=== PATIENT | female | born 1995 | race Caucasian/White ===

== ENCOUNTER 2017-05-07 03:38 | Emergency (ER) | payer MEDICAID ==
[2017-05-07 03:53] VITALS: RESP 20
[2017-05-07] MEDS ORDERED: Albuterol-Ipratrop 3 mg / 0.5 (3 ml) UD ONE (04:04)
[2017-05-07] MEDS ORDERED: Albuterol-Ipratrop 3 mg / 0.5 (3 ml) UD INH STA (04:21)
[2017-05-07] MEDS ORDERED: Albuterol 0.083% Inhal Sol (2.5 mg/3 mL) UD IH STA (04:22)
[2017-05-07] MEDS ORDERED: Albuterol 0.083% Inhal Sol (2.5 mg/3 mL) UD ONE ×2 (04:32→04:43)
--- NOTE | 2017-05-07 05:02 | C.PDOC ---
History Of Present Illness 21 year old female who presents to the ER with a complaint of cough, congestion , and difficulty breathing that began on Sunday. Patient states she has been taking nyquil with no relief to symptoms. No H/o asthma. (+) smoker. Denies fever, leg swelling or chest pain. Time Seen by Provider: 05/07/17 03:55 Chief Complaint (Nursing): ENT Problem History Per: Patient History/Exam Limitations: no limitations Onset/Duration Of Symptoms: Days Current Symptoms Are (Timing): Still Present Location Of Pain: None Sick Contacts (Context): None Associated Symptoms: Cough, Nasal Congestion. denies: Other ((+) Difficulty breathing. (-) Leg swelling, Chest pain) Ear Symptoms: Bilateral: None Recent travel outside of the [place]: No Past Medical History Reviewed: Historical Data, Nursing Documentation, Vital Signs Vital Signs: Last Vital Signs Temp 98.5 F 05/07/17 05:07 Pulse 86 05/07/17 05:07 Resp 20 05/07/17 05:07 BP 134/82 05/07/17 05:07 Pulse Ox 97 05/07/17 05:28 - Medical History PMH: No Chronic Diseases Surgical History: No Surg Hx - [facility] Procedures INJECT/INFUSE NEC (04/17/13) Family History: States: Unknown Family Hx - Social History Hx Tobacco Use: Yes Hx Alcohol Use: Yes Hx Substance Use: No - Immunization History Hx Influenza Vaccination: No Hx Pneumococcal Vaccination: No Review Of Systems ENT: Positive for: Nose Congestion Cardiovascular: Negative for: Chest Pain Respiratory: Positive for: Cough, Other (Difficulty breathing) Musculoskeletal: Negative for: Other (Leg swelling) Physical Exam - Physical Exam Appears: Non-toxic, No Acute Distress, Other (speaking in full sentences) Skin: Normal Color, Warm, Dry Head: Atraumatic, Normacephalic Eye(s): bilateral: Normal Inspection, PERRL, EOMI Ear(s): Bilateral: Normal Nose: Normal, Other (Congestion) Oral Mucosa: Moist Throat: Normal, No Erythema, No Exudate Neck: Normal ROM, Supple Lymphatic: Normal Exam Chest: Symmetrical Cardiovascular: Rhythm Regular Respiratory: Decreased Breath Sounds, No Rales, No Rhonchi, No Wheezing Gastrointestinal/Abdominal: Soft, No Tenderness Extremity: No Pedal Edema Neurological/Psych: Oriented x3, Normal Speech, Normal Cognition ED Course And Treatment O2 Sat by Pulse Oximetry: 97 (Room air) Pulse Ox Interpretation: Normal - Radiology CXR: Interpreted by Me, Viewed By Me CXR Interpretation: Yes: No Acute Disease Progress Note: CXR ordered. Prednisone and nebulizer treatment administered. Patient's peak flow was 150 initially, on reevaluation, peak flow is up to 260. Patient reports she feels better; cTA. Symptoms have resolved. No chest pain. Not tachycardic. pulse ox is 98 on room air. Patient will be discharged home with instructions to follow up with PMD in 1-2 days. Disposition - Disposition Disposition: HOME/ ROUTINE Disposition Time: 05:00 Condition: STABLE Additional Instructions: Follow up with your primary medical doctor or clinic in 2-5 days for further evaluation. Take medications as prescribed. Return to the emergency department at any time if symptoms persist or worsen. Prescriptions: Albuterol HFA [Ventolin HFA 90 mcg/actuation (8 g)] 2 puff IH [id number] #1 puff Guaifen/Dextromethorphan/PE [Mucinex Fast-Max Congest-Cough] 1 each PO Q6 #20 tablet predniSONE [Prednisone] 40 mg PO DAILY #8 tab Instructions: Bronchiolitis (ED) Forms: IP Ghoster ([facility]) - Clinical Impression Clinical Impression: Bronchitis - Scribe Statement The provider has reviewed the documentation as recorded by the Scribasha Freeman All medical record entries made by the Daniellaibasha were at my direction and personally dictated by me. I have reviewed the chart and agree that the record accurately reflects my personal performance of the history, physical exam, medical decision making, and the department course for this patient. I have also personally directed, reviewed, and agree with the discharge instructions and disposition.
[2017-05-07 05:08] VITALS: BP 134/82; PULSE 86; TEMP 98.5
[2017-05-07 05:22] VITALS: O2SAT 97
--- NOTE | 2017-05-07 09:34 | RAD ---
HISTORY: Shortness of breath COMPARISON: Chest x-ray performed 07/09/14 TECHNIQUE: Chest PA and lateral FINDINGS: LUNGS: No focal consolidation. Please note that chest x-ray has limited sensitivity for the detection of pulmonary masses. PLEURA: No significant pleural effusion identified. No definite pneumothorax . CARDIOVASCULAR: The cardiomediastinal silhouette appears within normal limits of size. OSSEOUS STRUCTURES: Mild scattered degenerative changes. VISUALIZED UPPER ABDOMEN: Unremarkable. OTHER FINDINGS: None. IMPRESSION: No focal consolidation, significant pleural effusion, or definite pneumothorax identified.
== END 2017-05-07 05:08 | disposition home or self-care (01) ==
LOC: C.ER 03:38
DX: J40 Bronchitis, not specified as acute or chronic (principal)